=== PATIENT | female | born 1975 | race Two or more races ===

== ENCOUNTER 2022-12-29 07:15 | Inpatient (IN) | payer OTHER ==
[~2022-12-29] VITALS: Ht 165.1 cm; Wt 72.1 kg
[2022-12-31] MEDS ORDERED: FALMINA1 EACH (08:14)
== END 2023-01-02 11:45 | disposition home or self-care (01) | DRG 743 ==
LOC: O/R 12-31 05:15 → OB/GYN 12-31 05:15 → SURH 12-31 07:00 → OB/GYN 12-31 11:11
PROVIDERS: ADMIT Obstetrics & Gynecology; ATTEND Obstetrics & Gynecology
PROC: 0UT70ZZ Resection of Bilateral Fallopian Tubes, Open Approach (ICD-10-PCS; 2022-12-31)
PROC: 0UT10ZZ Resection of Left Ovary, Open Approach (ICD-10-PCS; 2022-12-31)
PROC: 0DNW0ZZ Release Peritoneum, Open Approach (ICD-10-PCS; 2022-12-31)
PROC: 0UT90ZZ Resection of Uterus, Open Approach (ICD-10-PCS; principal; 2022-12-31 07:00)
DX: D25.0 Submucous leiomyoma of uterus (principal); D25.1 Intramural leiomyoma of uterus; D25.2 Subserosal leiomyoma of uterus; N80.03 Adenomyosis of the uterus; N83.02 Follicular cyst of left ovary; N72 Inflammatory disease of cervix uteri; Z20.822 Contact with and (suspected) exposure to COVID-19; N73.6 Female pelvic peritoneal adhesions (postinfective)